=== PATIENT | female | born 1990 | race Caucasian/White ===

== ENCOUNTER 2017-01-19 15:36 | Emergency (ER) | payer OTHER ==
[2017-01-19 17:22] VITALS: BP 128/71
--- NOTE | 2017-01-19 17:45 | UC ---
Abdominal Pain Female HPI - HPI Summary HPI Summary: 26 y/o female with ~ 2 week h/o left sided upper abdominal pain with associated intermittent diarrhea. Patient has complex history as has h/o diarrhea for severeal years that has not been evaluated. Diarrhea is intermittent, no blood / dark tarry stools. symptoms worse with eating un-healthy foods and drinking. patient recently on vacation and ETOH/ unhealthy foods more than typical. reports increased bloating/ gas/ feeling distended. denies N/V, pain elsewhere in abdomen. no other complaints/ concerns. - History of Current Complaint Chief Complaint: UCAbdominalPain Stated Complaint: LEFT SIDE ABDOMINAL PAIN Time Seen by Provider: 01/19/17 17:15 Hx Obtained From: Patient Hx Last Menstrual Period: 01/06/17 Onset/Duration: Gradual Onset, Lasting Weeks Severity Initially: Mild Severity Currently: Mild Pain Intensity: 3 Pain Scale Used: 0-10 Numeric Allergies/Adverse Reactions: Allergies Allergy/AdvReac Type Severity Reaction Status Date / Time No Known Allergies Allergy Verified 01/19/17 17:02 PMH/Surg Hx/FS Hx/Imm Hx Previously Healthy: Yes - Surgical History Surgical History: Yes Surgery Procedure, Year, and Place: T&A. wisdom teeth - Family History Known Family History: Positive: None - Social History Alcohol Use: Occasionally Substance Use Type: None Smoking Status (MU): Current Some Day Smoker Type: Cigarettes Amount Used/How Often: with drinking alcohol - Immunization History Most Recent Influenza Vaccination: NONE 2015 Most Recent Tetanus Shot: UTD Review of Systems Constitutional: Negative Skin: Negative Eyes: Negative ENT: Negative Respiratory: Negative Cardiovascular: Negative Gastrointestinal: Abdominal Pain, Diarrhea Genitourinary: Negative Motor: Negative Neurovascular: Negative Musculoskeletal: Negative Neurological: Negative Psychological: Negative All Other Systems Reviewed And Are Negative: Yes Physical Exam Triage Information Reviewed: Yes Appearance: Well-Appearing, No Pain Distress, Well-Nourished Vital Signs: Initial Vital Signs Temp 99.5 F 01/19/17 17:02 Pulse 82 01/19/17 17:02 Resp 18 01/19/17 17:02 BP 128/71 01/19/17 17:02 Pulse Ox 100 01/19/17 17:02 Eyes: Positive: Conjunctiva Clear Abdomen Description: Positive: Nontender, No Organomegaly, Soft, Distended - mild, Other: - neg mcburney, neg psoas, pain not reproduced with light or deep palpation of abdomen in any location. normoactive bowel sounds. no organomegaly, no epigastric tenderness. Bowel Sounds: Positive: Present Musculoskeletal: Positive: ROM Intact Abd Pain Female Course/Dx - Course Course Of Treatment: Patient to follow up with GI, stool kit given, to bring back. gas-x for distension. - Differential Dx/Diagnosis Differential Diagnosis: Appendicitis, Constipation, Diverticulitis, Hepatitis, Pancreatitis, Provider Diagnoses: abdominal pain Discharge - Discharge Plan Condition: Good Disposition: HOME Prescriptions: Simethicone [Gas-X] 80 mg PO Q6H PRN #40 chw PRN Reason: gas, bloating Patient Education Materials: Abdominal Pain (ED) Referrals: Lester Ramirez MD [Medical Doctor] - 2 Weeks No Primary Care Phys,NOPCP [Primary Care Provider] - Additional Instructions: - Follow up with GI physician for symptoms - Return to ER, urgent care with dark, tarry stools, increased abdominal pain, bloating, nausea/ vomiting, fever or chills - Gas-X as needed for pain
== END 2017-01-19 18:01 | disposition home or self-care (01) ==
LOC: UCCORT 15:36
DX: R10.12 Left upper quadrant pain (principal); R19.7 Diarrhea, unspecified; Z72.0 Tobacco use
CPT/HCPCS: 99212; G0463